=== PATIENT | male | born 1955 | race Caucasian/White ===

== ENCOUNTER 2022-11-10 18:23 | Inpatient (IN) ==
[2022-11-10] MEDS ORDERED: GADOBENATE DIMEGLUMINE 20 ML/VIAL IV ONE (18:24)
[2022-11-10] MEDS ORDERED: LIDOCAINE 1% 10 ML VIAL SQ ONE (18:24)
[2022-11-10] MEDS ORDERED: IOPAMIDOL 100 ML BOTTLE IV ONE (18:24)
[2022-11-10 20:22] LABS: Basophils # (Auto) 0.03 K/mcL (0.00-0.30); Basophils % (Auto) 0.3 % (0.0-2.0); Eosinophils # (Auto) 0.25 K/mcL (0.00-0.70); Eosinophils % (Auto) 2.2 % (0.0-7.0); Hematocrit 34.9 % (40.1-51.0); Hemoglobin 11.4 g/dL (13.7-17.5); Lymphocytes # (Auto) 1.49 K/mcL (1.50-4.80); Lymphocytes % (Auto) 12.8 % (15.5-49.0); Mean Cell Volume 90.9 fL (80.0-100.0); Mean Corpuscular HGB Conc 32.7 g/dL (31.0-36.0); Mean Platelet Volume 8.7 fL (8.8-12.5); Monocytes # (Auto) 0.92 K/mcL (0.10-0.90); Monocytes % (Auto) 7.9 % (1.0-12.0); Neutrophils % (Auto) 76.1 % (38.0-78.0); Platelet Count 374 K/mcL (140-440); RBC 3.84 M/mcL (4.63-6.08); Red Cell Distribution Width 14.2 % (11.5-14.5); WBC 11.6 K/mcL (4.5-11.0)
[2022-11-10 20:43] LABS: ALT/SGPT 8 U/L (<40); AST/SGOT 14 U/L (<40); Albumin 3.5 gm/dL (3.2-5.2); Albumin/Globulin Ratio 0.8 (1.0-2.3); Alkaline Phosphatase 90 U/L (39-117); Bilirubin,Total 0.3 mg/dL (0.1-1.0); Blood Urea Nitrogen 16 mg/dL (8-23); Calcium 9.1 mg/dL (8.6-10.4); Carbon Dioxide 23 mmol/L (22-30); Chloride 95 mmol/L (96-108); Globulin 4.2 gm/dL (2.2-3.7); Glomerular Filtration Rate 69; Glucose 122 mg/dL (70-105)
[2022-11-10 21:12] LABS: Erythrocyte Sedimentation Rate 91 mm/hr (0-20)
[2022-11-10] MEDS ORDERED: ACETAMINOPHEN 325 MG TABLET PO ONE (22:31)
[2022-11-11] MEDS ORDERED: VANCOMYCIN 2,000 MG in 0.9 % SODIUM CHLORIDE 500 ML IV ONE (11:50)
[2022-11-11 13:19] LABS: Crystals,Body Fluid None Seen (None Seen)
[2022-11-11 13:47] LABS: Appearance,Synovial Fluid BLOODY; Color,Synovial Fluid RED; Lymphocytes,Synovial Fluid 9 %; Neutrophils,Synovial Fluid 83 % (0-25); Nucleated Cells,Synovial Fld 32 /cumm; Other Cells,Synovial Fluid 8 %
[2022-11-11] MEDS ORDERED: VANCOMYCIN PER PHARMACY IV SCH (14:30)
[2022-11-11] MEDS ORDERED: ACETAMINOPHEN 325 MG TABLET PO PRN (14:30)
[2022-11-11] MEDS ORDERED: ONDANSETRON 4 MG/2 ML VIAL IV PRN (14:30)
[2022-11-11] MEDS ORDERED: HYDROcodone/APAP 5/325MG TABLET PO PRN (14:30)
[2022-11-11] MEDS: 0.9 % SODIUM CHLORIDE 10 ML SYRINGE IV SCH ×2 (15:15→20:58)
[2022-11-11] MEDS: VANCOMYCIN 1,500 MG in 0.9 % SODIUM CHLORIDE 500 ML IV SCH (20:57)
[2022-11-11] MEDS: DOCUSATE SODIUM 100 MG CAPSULE PO SCH (20:58)
[2022-11-11] MEDS: SENNOSIDES 1 TABLET PO SCH (20:58)
[2022-11-11] MEDS: IBUPROFEN 600 MG TABLET PO PRN (21:01)
[2022-11-12 07:41] LABS: Basophils # (Auto) 0.05 K/mcL (0.00-0.30); Basophils % (Auto) 0.5 % (0.0-2.0); Eosinophils # (Auto) 0.39 K/mcL (0.00-0.70); Eosinophils % (Auto) 4.2 % (0.0-7.0); Hematocrit 33.5 % (40.1-51.0); Lymphocytes # (Auto) 1.41 K/mcL (1.50-4.80); Lymphocytes % (Auto) 15.2 % (15.5-49.0); Mean Cell Volume 90.8 fL (80.0-100.0); Mean Corpuscular HGB Conc 32.8 g/dL (31.0-36.0); Mean Platelet Volume 8.9 fL (8.8-12.5); Monocytes # (Auto) 0.94 K/mcL (0.10-0.90); Monocytes % (Auto) 10.1 % (1.0-12.0); Neutrophils % (Auto) 69.6 % (38.0-78.0); Platelet Count 385 K/mcL (140-440); RBC 3.69 M/mcL (4.63-6.08); WBC 9.3 K/mcL (4.5-11.0)
[2022-11-12] MEDS: 0.9 % SODIUM CHLORIDE 10 ML SYRINGE IV SCH ×3 (08:04→22:40)
[2022-11-12 08:05] LABS: ALT/SGPT 9 U/L (<40); AST/SGOT 11 U/L (<40); Albumin 3.2 gm/dL (3.2-5.2); Albumin/Globulin Ratio 0.9 (1.0-2.3); Alkaline Phosphatase 80 U/L (39-117); Bilirubin,Direct < 0.2 mg/dL (0-0.3); Bilirubin,Total 0.3 mg/dL (0.1-1.0); Blood Urea Nitrogen 17 mg/dL (8-23); Calcium 9.1 mg/dL (8.6-10.4); Carbon Dioxide 24 mmol/L (22-30); Chloride 100 mmol/L (96-108); Globulin 3.7 gm/dL (2.2-3.7); Glomerular Filtration Rate 77; Glucose 96 mg/dL (70-105); Lactate Dehydrogenase 114 U/L (135-225); Phosphorous 3.5 mg/dL (2.5-4.5); Triglycerides 61 mg/dL (<150); Uric Acid 6.8 mg/dL (2.5-8.0)
[2022-11-12] MEDS: DOCUSATE SODIUM 100 MG CAPSULE PO SCH ×2 (08:39→22:29)
[2022-11-12] MEDS: VANCOMYCIN 1,500 MG in 0.9 % SODIUM CHLORIDE 500 ML IV SCH ×2 (08:39→22:40)
[2022-11-12] MEDS ORDERED: ENOXAPARIN 40 MG/0.4 ML SYRINGE SQ SCH (09:00)
[2022-11-12] MEDS ORDERED: tiZANidine 4 MG TABLET PO PRN (09:47)
[2022-11-12] MEDS: APIXABAN 5 MG TABLET PO SCH ×2 (10:03→22:29)
[2022-11-12] MEDS: SPIRONOLACTONE 25 MG TABLET PO SCH (10:03)
[2022-11-12] MEDS: Cyclosporine [Restasis] 0.05 % Dropperette OP SCH (22:00)
[2022-11-12] MEDS: SENNOSIDES 1 TABLET PO SCH (22:29)
[2022-11-13] MEDS: IBUPROFEN 600 MG TABLET PO PRN ×3 (00:09→23:33)
[2022-11-13] MEDS: 0.9 % SODIUM CHLORIDE 10 ML SYRINGE IV SCH ×4 (05:52→23:16)
[2022-11-13] MEDS: SPIRONOLACTONE 25 MG TABLET PO SCH (09:20)
[2022-11-13] MEDS: LOSARTAN 50 MG TABLET PO SCH (09:20)
[2022-11-13] MEDS: APIXABAN 5 MG TABLET PO SCH ×2 (09:21→20:58)
[2022-11-13] MEDS: DOCUSATE SODIUM 100 MG CAPSULE PO SCH ×2 (09:21→20:59)
[2022-11-13] MEDS: Cyclosporine [Restasis] 0.05 % Dropperette OP SCH ×2 (09:21→20:59)
[2022-11-13] MEDS: VANCOMYCIN 1,500 MG in 0.9 % SODIUM CHLORIDE 500 ML IV SCH (10:59)
[2022-11-13] MEDS: VANCOMYCIN 1,250 MG in 0.9 % SODIUM CHLORIDE 500 ML IV SCH ×2 (11:03→23:15)
[2022-11-13] MEDS: SENNOSIDES 1 TABLET PO SCH (20:59)
[2022-11-14] MEDS: 0.9 % SODIUM CHLORIDE 10 ML SYRINGE IV SCH ×3 (01:08→14:30)
[2022-11-14] MEDS ORDERED: 0.9 % SODIUM CHLORIDE 10 ML SYRINGE IV PRN (07:27)
[2022-11-14] MEDS: APIXABAN 5 MG TABLET PO SCH (08:26)
[2022-11-14] MEDS: LOSARTAN 50 MG TABLET PO SCH (08:26)
[2022-11-14] MEDS: SPIRONOLACTONE 25 MG TABLET PO SCH (08:27)
[2022-11-14 08:57] LABS: Erythrocyte Sedimentation Rate 88 mm/hr (0-20)
[2022-11-14] MEDS ORDERED: 0.9 % SODIUM CHLORIDE 10 ML SYRINGE IV SCH (09:00)
[2022-11-14 09:04] LABS: Basophils # (Auto) 0.03 K/mcL (0.00-0.30); Basophils % (Auto) 0.3 % (0.0-2.0); Eosinophils # (Auto) 0.36 K/mcL (0.00-0.70); Eosinophils % (Auto) 4.2 % (0.0-7.0); Hematocrit 32.3 % (40.1-51.0); Hemoglobin 10.6 g/dL (13.7-17.5); Lymphocytes # (Auto) 1.02 K/mcL (1.50-4.80); Lymphocytes % (Auto) 11.8 % (15.5-49.0); Mean Cell Volume 89.2 fL (80.0-100.0); Mean Corpuscular HGB Conc 32.8 g/dL (31.0-36.0); Mean Platelet Volume 8.9 fL (8.8-12.5); Monocytes # (Auto) 0.84 K/mcL (0.10-0.90); Monocytes % (Auto) 9.8 % (1.0-12.0); Neutrophils % (Auto) 73.3 % (38.0-78.0); Platelet Count 403 K/mcL (140-440); RBC 3.62 M/mcL (4.63-6.08); WBC 8.6 K/mcL (4.5-11.0)
[2022-11-14] MEDS: DOCUSATE SODIUM 100 MG CAPSULE PO SCH (12:33)
[2022-11-14] MEDS: Cyclosporine [Restasis] 0.05 % Dropperette OP SCH (12:33)
[2022-11-14] MEDS: VANCOMYCIN 1,250 MG in 0.9 % SODIUM CHLORIDE 500 ML IV SCH (12:46)
[2022-11-14] MEDS: IBUPROFEN 600 MG TABLET PO PRN (14:33)
== END 2022-11-14 16:50 | disposition home or self-care (01) | DRG 552 ==
LOC: ED 18:23 → MEDSUR 11-11 14:21
PROVIDERS: ADMIT Internal Medicine; ATTEND Internal Medicine